=== PATIENT | male | born 1955 | race Caucasian/White ===

== ENCOUNTER 2020-04-18 12:23 | Emergency (ER) | payer OTHER ==
[~2020-04-18] VITALS: Ht 165.1 cm; Wt 74.8 kg
[2020-04-18 12:39] VITALS: Ht 165.1 cm; Wt 74.8 kg
[2020-04-18 13:55] VITALS: BP 137/74
== END 2020-04-18 13:55 | disposition home or self-care (01) ==
LOC: ED 12:23
DX: M79.10 Myalgia, unspecified site (principal); R51.9 Headache, unspecified; I10 Essential (primary) hypertension; F17.210 Nicotine dependence, cigarettes, uncomplicated; Z20.828 Contact with and (suspected) exposure to other viral communicable diseases
CPT/HCPCS: J1885; U0003

== ENCOUNTER 2020-06-03 15:24 | Emergency (ER) | payer OTHER ==
[~2020-06-03] VITALS: Ht 165.1 cm; Wt 72.6 kg
[2020-06-03 15:50] VITALS: Ht 165.1 cm; Wt 72.6 kg
[2020-06-03 17:22] LABS: BASOPHIL % 1.4 % (0.2-1.5); PLATELET COUNT 338 x10^3mcL (152-348)
[2020-06-03 17:30] LABS: RED CELL DISTRIBUTION WIDTH 14.7 % (12.1-16.2)
[2020-06-03 17:57] LABS: CARBON DIOXIDE 26.9 mmol/L (21-32); CHLORIDE SERUM 103 mmol/L (98-107); CREATININE SERUM 0.9 mg/dL (0.7-1.3); GFR1 > 60 mL/min; GLUCOSE SERUM 93 mg/dL (74-106); POTASSIUM SERUM 3.9 mmol/L (3.5-5.1); SODIUM SERUM 141 mmol/L (136-145)
[2020-06-03 18:01] LABS: ALBUMIN 3.9 g/dL (3.4-5.0); ALKALINE PHOSPHATASE 90 U/L (46-116); ALT/SGPT 23 U/L (16-63); AST/SGOT 11 U/L (15-37); BILIRUBIN TOTAL 0.55 mg/dL (0.20-1.00); LIPASE 128 IU/L (73-393); TOTAL PROTEIN, SERUM 8.2 g/dL (6.4-8.2)
[2020-06-03 19:03] VITALS: BP 165/93
== END 2020-06-03 18:50 | disposition home or self-care (01) ==
LOC: ED 15:24
PROVIDERS: Emergency Medicine
DX: R10.13 Epigastric pain (principal); R10.11 Right upper quadrant pain; I10 Essential (primary) hypertension; F17.210 Nicotine dependence, cigarettes, uncomplicated

== ENCOUNTER 2020-07-18 11:30 | Inpatient (IN) | payer OTHER ==
[~2020-07-18] VITALS: Ht 165.1 cm; Wt 71.7 kg
[2020-07-18 11:50] VITALS: Ht 165.1 cm; Wt 71.7 kg
--- NOTE | 2020-07-18 11:52 | NUR ---
PT ARRIVED TO ED WITH COMPLAINTS OF CHEST PAIN THAT STARTED X 5 DAYS AGO. PT STATES CHEST PAIN IS SHARP AND R/T TO RIGHT ARM. PT STATES PAIN IS INTERMITTENT, AND TAKES VICODIN WITH RELIEF AND THEN PAIN WILL RETURN WITH ACTIVITY. PT STATES AT TIMES HAS SWEATS ASSOCIATED WITH CHEST PAIN. BROUGHT PT TO ORTHO VIA WHEELCHAIR. CHANGED INTO GOWN, HOOKED UP TO [facility], NSR. PT LOOKS TO BE IN NO ACUTE DISTRESS AT THIS TIME. PT STATES NAUSEA AT TIMES AFTER TAKING VICODIN. PT DENIES ANY NAUSEA AT THIS TIME. WILL CONTINUE TO MONITOR.
--- NOTE | 2020-07-18 12:20 | NUR ---
XRAY AT BEDSIDE
[2020-07-18 12:32] LABS: BASOPHIL % 0.7 % (0.2-1.5); PLATELET COUNT 289 x10^3mcL (152-348)
[2020-07-18 12:37] LABS: RED CELL DISTRIBUTION WIDTH 15.2 % (12.1-16.2)
[2020-07-18 12:46] LABS: CALCIUM 8.9 mg/dL (8.5-10.1); CARBON DIOXIDE 27.3 mmol/L (21-32); CHLORIDE SERUM 101 mmol/L (98-107); GFR1 > 60 mL/min; GLUCOSE SERUM 165 mg/dL (74-106); POTASSIUM SERUM 3.9 mmol/L (3.5-5.1); SODIUM SERUM 138 mmol/L (136-145)
[2020-07-18 12:51] LABS: ALBUMIN 3.5 g/dL (3.4-5.0); ALKALINE PHOSPHATASE 75 U/L (46-116); ALT/SGPT 24 U/L (16-63); AST/SGOT 41 U/L (15-37); BILIRUBIN TOTAL 0.6 mg/dL (0.20-1.00)
[2020-07-18 15:05] LABS: AMPHETAMINE QUAL UR NONE DETECTED (See below)
--- NOTE | 2020-07-18 17:40 | NUR ---
CLARA RESULTS POSITIVE, PER DR. DE JESUS RE SWAB TO CLARIFY CLARA RESULT. PT RESWABBED AND SENT TO LAB
--- NOTE | 2020-07-18 18:08 | NUR ---
PER LAB, SECOND CLARA TEST IS RESULTING POSITIVE AND NEGATIVE. PER LAB, CLARA 1 IS POSITIVE AND CLARA 2 NEGATIVE. WILL NOTIFY ADMITTING
--- NOTE | 2020-07-18 18:13 | NUR ---
PER DR. PORTILLO, ADMIT TO A COVID ROOM AND WILL NEED PCR.
--- NOTE | 2020-07-18 18:19 | NUR ---
CALLED AND GAVE REPORT TO DANAE COLMENARES
[2020-07-18 19:22] VITALS: BP 135/82
--- NOTE | 2020-07-18 19:34 | NUR ---
RECEIVED PT FROM ER, PT ADMIT FOR NSTEMI, PT IS A/O X4, VERBAL RESPONSIVE. LUNG SOUND CLEAR ANGELI, NO COUGH, NO SOB, PT IS ON TELE 35, NSR, DENY ANY CHEST PAIN OR DISCOMFORT, BOWEL SOUND PRESENT ALL 4 QUADRANTS, NO DISTENTION, NO TENDER. PEDAL PULSE PRESENT BOTH FEET, NO EDEMA, IV AT RIGHT FA, NO LEAKING, NO INFILTRATION. ALL ADLS ASSIST, ALL NEED MET, CALL LIGHT IN REACH, WILL CONTINUE TO MONITOR.
--- NOTE | 2020-07-18 20:36 | NUR ---
REPORT FROM DAY RN. NO S/S OF DISTRESS OR DISCOMFORT. BREATHING EVEN AND UNLABORED ON RA. SPO2 99% CTAB. AXOX4 AMBULATES. NO CP AT THIS TIME. TELE 35 NSR. SOFT ROUND ABD ACTIVE BOWELS X 4. R HAND 20G RUNNING HEPARIN. 900 UNITS/HR STRONG RADIAL AND PEDAL PULSES. VOIDS FREELY IN URINAL. CALM AND COOPERATIVE WITH CARE. BED IN LOW POSITION, SIDE RAILS UPX2 CALL LIGHT WITIN REACH. WILL CONTINUE TO MONITOR PATIENT AND OFFER SUPPORT.
[2020-07-18 20:44] VITALS: BP 136/76
--- NOTE | 2020-07-18 23:23 | NUR ---
SPOKE WITH DR PRIDE ABOUT TROP 6.159. NO NEW ORDERS. PATIENT ON A HEPARIN DRIP 900 U/HR, DENIES CHEST PAIN OR SHORTNESS OF BREATH. CARDIO IS ON THE CASE. WILL CONTINUE TO MONITOR PATIENT AND OFFER SUPPORT.
--- NOTE | 2020-07-19 02:43 | NUR ---
PTT 37.6 REBOLUS 2900 UNITS AND INCREASE RATE 1ML/HR (100 UNITS/H) RATE WILL BE 1000 U/HR
--- NOTE | 2020-07-19 03:16 | NUR ---
1000 U/HR 10ML/HR FOR HEPARIN DRIP
[2020-07-19 06:06] VITALS: BP 120/78
--- NOTE | 2020-07-19 06:22 | NUR ---
PATIENT RESTING, EYES CLOSED. NO S/S OF DISTRESS OR DISCOMFORT. PATIENT DENIES CHEST PAIN. BREATHING EVEN AND UNLABORED ON RA 99% SPO2. AXOX4 AMBULATES. PATIENT ON A HEPARIN DRIP 1000U/ HR 10ML/HR, NEXT PTT DRAW 0900. LAST PTT AT 37.6. WILL CONTINUE TO MONITOR AND ENDORSE TO DAY SHIFT.
--- NOTE | 2020-07-19 07:22 | NUR ---
PT RECEIVED THIS MORNING RESTING IN BED IN NO ACUTE DISTRESS. DENIES ANY CHEST PAIN OR SOB. REMAINS NPO AWAITING MD FOR FURTHER INSTRUCTIONS.PT ON RA SPO2 95% NORMOACTIVE ACTIVE BOWEL SOUNDS PRESENT IN ALL 4 QUADRANTS. BEDSIDE BLOOD GLUCOSE IS 96 THIS MORNING.ALL NEEDS ATTENDED. IV TO R FA PATENT.CALL LIGHT IN REACH AND BED PLACED AT LOWEST POSITION.
[2020-07-19 07:34] LABS: BASOPHIL % 0.3 % (0.2-1.5); PLATELET COUNT 273 x10^3mcL (152-348)
[2020-07-19 07:47] LABS: RED CELL DISTRIBUTION WIDTH 15.4 % (12.1-16.2)
[2020-07-19 07:52] LABS: CALCIUM 9.5 mg/dL (8.5-10.1); CARBON DIOXIDE 24.5 mmol/L (21-32); CHLORIDE SERUM 100 mmol/L (98-107); CREATININE SERUM 0.9 mg/dL (0.7-1.3); GFR1 > 60 mL/min; GLUCOSE SERUM 60 mg/dL (74-106); HDL CHOLESTEROL 41 mg/dL (40-60); MAGNESIUM 2.4 mg/dL (1.8-2.4); POTASSIUM SERUM 4.8 mmol/L (3.5-5.1); SODIUM SERUM 137 mmol/L (136-145); TRIGLYCERIDES 134 mg/dL (<150)
[2020-07-19 07:54] LABS: CHOLESTEROL 211 mg/dL (<200); CHOLESTEROL/HDL RATIO 5.1
[2020-07-19 08:47] VITALS: BP 158/71
--- NOTE | 2020-07-19 10:34 | NUR ---
SPOKE W PATIENTS DAUGHTER TO UPDATE ON PATIENTS CONDITION. DAUGHTER SPOKE W FATHER. NO FURTHER QUESTIONS OR CONCERNS.
--- NOTE | 2020-07-19 10:35 | NUR ---
PT RESTING IN BED AAOX4 IN NO APPARENT DISTRESS. ABLE TO MAKE NEEDS KNOWN. DENIES ANY PAIN OR SOB AT THIS MOMENT. CALL LIGHT IN REACH. BLOOD DRAWN FOR PTT LEVELS. AWAITING RESULTS.
--- NOTE | 2020-07-19 10:59 | NUR ---
PTS PTT 48.6 NO CHANGES TO HEPARIN DRIP AT THIS MONENT
--- NOTE | 2020-07-19 11:17 | NUR ---
PT TO BE REDRAWN FOR PTT TODAY AT 1700.
[2020-07-19 12:07] VITALS: BP 142/93
[2020-07-19] MEDS ORDERED: PLAVIX75 M1 PO (12:41)
[2020-07-19] MEDS ORDERED: METOPROLOL TART25 M1 PO (12:41)
[2020-07-19] MEDS ORDERED: LIPITOR80 MG PO (12:42)
[2020-07-19] MEDS ORDERED: ADULT ASPIRIN R81 MG PO (12:42)
[2020-07-19 13:03] VITALS: BP 142/93
--- NOTE | 2020-07-19 14:19 | NUR ---
PT INFORMED OF PLAN OF CARE TO D/C HOME ONCE HEPARIN DRIP WAS DONE AND PT VERBALLY STATING, " I DONT GIVE A SHIT". INITIAL DOSE OF PLAVIX ADMINISTERED ORDERED PER MD. RISKS AND BENEFITS EXPLAINED AND PT VERBALIZES UNDERSTANDING.
--- NOTE | 2020-07-19 15:10 | NUR ---
DR BORGES HERE TO SEE PATIENT. PT AWARE OF PLAN OF CARE AND LEFT AMA. EXPLAINED RISKS AND BENEFITS X 3. PT VERBALIZES UNDERSTANDING AND CONTINUED TO LEAVE. AMA SIGNED AND EXPLAINED. IV TO LFA DISCONTINUED, CATHETER INTACT AND BLEEDING CONTROLLED. PT AAOX4 AND ABLE TO AMBULATER PERSELF. PT DENIES ANY PAIN OR SOB.
--- NOTE | 2020-07-19 15:55 | NUR ---
DR CONTRERAS NOTIFIED OF PATIENT LEAVING AMA
--- NOTE | 2020-07-20 07:25 | NUR ---
ECHOCARDIOGRAM NOT DONE-DISCHARGED
== END 2020-07-19 15:01 | disposition left against medical advice (07) | DRG 190 ==
LOC: ED 11:30 → DU 15:32
PROVIDERS: Emergency Medicine; ADMIT Hospitalist; ATTEND Hospitalist
DX: I21.4 Non-ST elevation (NSTEMI) myocardial infarction (principal); U07.1 COVID-19; F17.210 Nicotine dependence, cigarettes, uncomplicated; I10 Essential (primary) hypertension; Z53.29 Procedure and treatment not carried out because of patient's decision for other reasons; R73.9 Hyperglycemia, unspecified; E78.5 Hyperlipidemia, unspecified
CPT/HCPCS: 82962; 83880; 99406; G0378; J1644; U0003